=== PATIENT | female | born 1995 | race Caucasian/White ===

== ENCOUNTER 2018-05-10 11:56 | Inpatient (IN) ==
[2018-05-10] MEDS ORDERED: Ondansetron 4 MG/2 ML VIAL IVP PRN (12:42)
[2018-05-10] MEDS ORDERED: Famotidine 20 MG/2 ML VIAL IVP PRN (12:42)
[2018-05-10] MEDS ORDERED: Naloxone 0.4 MG/ML INJ IVP PRN (12:42)
[2018-05-10] MEDS ORDERED: Metoclopramide 10 MG/2 ML VIAL IVP PRN (12:42)
[2018-05-10] MEDS ORDERED: *HR* Nalbuphine 10 MG/ML AMPUL IVP PRN (12:42)
[2018-05-10] MEDS ORDERED: Ringers Solution, Lactated 1,000 ML IVC SCH (12:45)
[2018-05-10 13:14] LABS: Basophils # 0.1 K/mcL (0.0-0.2); Basophils % 0.3 %; Eosinophils # 0.1 K/mcL (0.0-0.6); Eosinophils % 0.4 %; Hematocrit 35.5 % (35.3-44.9); Hemoglobin 11.7 g/dL (11.5-15.4); Immature Granulocytes % 0.5 % (0-4); Lymphocytes # 2.9 K/mcL (0.6-4.6); Lymphocytes % 19.8 %; Mean Corpuscular Hemoglobin 27.7 pg (28.0-33.3); Mean Corpuscular Volume 84.1 fL (83.0-100.0); Mean Platelet Volume 12.8 fL (9.4-12.4); Monocytes # 0.8 K/mcL (0.0-1.3); Monocytes % 5.5 %; Neutrophils # 10.8 K/mcL (1.6-8.9); Platelet Count 201 K/mcL (140-400); Red Blood Count 4.22 M/mcL (3.82-4.97); Red Cell Distribution Width 13.8 % (11.5-14.5); Segmented Neutrophils % 73.5 %
[2018-05-10 13:26] LABS: Amphetamine Screen,Urine Negative ng/mL (Cutoff=1000); Barbiturate Screen,Urine Negative ng/mL (Cutoff=200); Benzodiazepines Screen,Urine Negative ng/mL (Cutoff=200); Cannabinoid Screen,Urine Negative ng/mL (Cutoff = 50); Cocaine Screen,Urine Negative ng/mL (Cutoff= 300); Opiate Screen,Urine Negative ng/mL (Cutoff=300); Phencyclidine Screen,Urine Negative ng/mL (Cutoff=25)
--- NOTE | 2018-05-10 14:26 | OB/GYN History & Physical ---
Date of Encounter: 05/10/18 Time of Encounter: 14:22 Assessment and Plan (1) 40 weeks gestation of Current visit: Yes Status: Acute Admit to labor and delivery Continuous monitoring Patient has Nubain or Epidural available upon request GBS negative Anticipate Vaginal Delivery (2) Intrauterine Current visit: Yes Status: Acute History of Present Illness Chief complaint: Labor Evaluation HPI: Ms. Machuca is a 23 year old female 40 +1 who presents to the Labor and delivery floor with contractions that started at 10am today. Reports that she has had no complications during this . Reports some vaginal spotting after checks. Denies any leakage of clear fluid. Reports recent movement. Patient has seen Dr. Sanchez on an outpatient basis. Blood Type: 0+ GBS: negative Hep B surface antigen: negative HIV AB: negative Treponema: negative Gonnorhea: negative Chlamydia: negative (has history of chlamydia) Varicella: Immune Rubella: immune Past Med Surg Social Fam HX - Past Medical History Medical history: non-contributory Psychiatric history: no psych history - Social History Smoking Status: Unknown if ever smoked Smokeless Tobacco Status: No Alcohol use: unknown Drug use: none - Family History Mother Adopted: No Age: 41 Family Member Ethnicity: Non- Living Status: Still Living Hx Family Cardiac Disorders: No Hx Family Respiratory Disorders: No Hx Family Cancer: No Hx Family GI Disorders: No Hx Family Genitourinary Disorders: No Hx Family Endocrine Disorder: No Hx Family Musculoskeletal Disorders: No Hx Family Neuromuscular Disorders: No Hx Family Neurologic Disorders: No Hx Family HEENT Disorders: No Hx Family Autoimmune Disorders: No Hx Family Reproductive Disorders: No Hx Family Psychosocial Disorders: No Hx Family Medical Disorders: No Obstetrical History - Pregnancies : 3 Para: 2 Term: 1 : 0 Ab's: 1 Livin - History/Complications History/Complications: one miscarriage Medications and Allergies Omeprazole [PriLOSEC] 20 mg PO DAILY 05/10/18 [History] Vit Calc,Iron,Folic [ Vitamins] 1 tab PO DAILY 05/10/18 [ History] 3 Allergy/AdvReac Type Severity Reaction Status Date / Time No Known Allergies Allergy Verified 02/23/16 23:37 Review of System OB All systems PM: reviewed and no additional remarkable complaints except as stated - Constitutional Constitutional ROS IM: no fever(s), no headache(s) - Cardiovascular Cardiovascular: no dyspnea - Respiratory Respiratory: no dyspnea - Gastrointestinal Gastrointestinal: no abdominal pain - Genitourinary Genitourinary: other (spotting) - Integumentary Integumentary: no rash Exam - Constitutional Constitutional: well developed, well nourished, no acute distress - HEENT HEENT: Mucus Membranes Moist - Neck Neck exam: normal inspection - Lungs Respiratory exam: CTAB - Cardiovascular Cardiovascular exam: RRR, +S1, +S2 - Abdomen Abdomen: Present: gravid, non tender - Extremities Extremities exam: full ROM Results Result Diagrams: 05/10/18 12:55 Abnormal lab results WBC 14.7 K/mcL (4.3-11.1) H 05/10/18 12:55 MCH 27.7 pg (28.0-33.3) L 05/10/18 12:55 MPV 12.8 fL (9.4-12.4) H 05/10/18 12:55 Neutrophils # 10.8 K/mcL (1.6-8.9) H 05/10/18 12:55 All other labs normal. - VTE Reasons for not Prescribing Prophylaxis: Treatment not Indicated - Low risk for VTE
[2018-05-10] MEDS ORDERED: Oxytocin 20 units/ LR 1000 mL 20 UNIT/1,000 ML BAG IVC SCH ×2 (15:00→22:26)
[2018-05-10] MEDS ORDERED: *HR* Ropivacaine/PF 0.2% 20 ML VIAL EP ONE (15:48)
[2018-05-10] MEDS ORDERED: *HR* FentaNYL (PF) 100 MCG/2 ML VIAL EP ONE (15:48)
--- NOTE | 2018-05-10 15:48 | Anesthesia Evaluation PreOp ---
Date of Encounter: 05/10/18 Time of Encounter: 15:46 - Past History Planned Operation: lili Cardiac History: Denies any Significant Hx Pulmonary History: Denies Any Significant HX SOCIAL SCIENTIST History: Denies Any Significant HX Other Medical History: GERD Anesthesia History: No Prior Anesthetic Complications, Past Anesthesia (t&a lili) : Yes Test: Positive Alcohol Use: unknown Drug use: none Medications and Allergies Omeprazole [PriLOSEC] 20 mg PO DAILY 05/10/18 [History] Vit Calc,Iron,Folic [ Vitamins] 1 tab PO DAILY 05/10/18 [ History] 3 Allergy/AdvReac Type Severity Reaction Status Date / Time No Known Allergies Allergy Verified 02/23/16 23:37 - Meds/Allergy Pre-op Review Medications Reviewed: Yes Allergies Reviewed: Yes Beta Blockers on Current Med List: No Anesthesia Results - Labs 05/10/18 12:55 Anesthesia Exam see nsg note Height: 5'5" Weight: 193 NPO (# of Hours): 2 Pain Scale: 3 Pain Scale Used: Numeric (1 - 10) - HEENT Pupil (Motor): Pupils equal Mallampati: II Teeth: Normal Oral Opening: Greater than 3 - SOCIAL SCIENTIST LOC: Oriented SOCIAL SCIENTIST Motor: Normal RUE, Normal LUE, Normal RLE, Normal LLE, Normal Face SOCIAL SCIENTIST Sensory: Normal: RUE, LUE, RLE, LLE, Face - Cardiac Rhythm: Regular Murmur: None - Pulmonary Breath Sounds: bilateral Clear Respiratory Effort: Symmetrical Anesthesia Assess/Plan ASA Score: 2 Modified Ashly Scale for Level of Consciousness: Cooperative, oriented, and tranquil Anesthetic Plan: Regional Autologous Blood: No Monitoring Plan: Standard Monitors Recovery Plan: Other (risks discussed questions answered, consented)
[2018-05-10] MEDS ORDERED: Epidural Premix (fent/bupiv) 110 ML EP SCH (16:00)
[2018-05-10] MEDS ORDERED: Lidocaine -MPF 2% 5 ML VIAL ONE (17:47)
[2018-05-10] MEDS ORDERED: *HR* Ropivacaine/PF 0.2% 20 ML VIAL ONE (17:47)
[2018-05-10] MEDS ORDERED: *HR* FentaNYL (PF) 100 MCG/2 ML VIAL ONE (17:48)
--- NOTE | 2018-05-10 18:05 | OB Labor Progress Note ---
Date of Encounter: 05/10/18 Time of Encounter: 18:03 Labor Progress Note - Subjective Subjective: 23 yo female presents to L&D with contractions. SVE on presentation 6/80/ -2. Regular contractions - Cervix Cervix: 6/80/-2 - Heart Tones Heart Tones: 150s category 1 - Interventions Interventions: AROM performed with light Meconium stained fluid noted. - Plan Plan: Pitocin started to increase contractions. Expectant management
--- NOTE | 2018-05-10 18:50 | Anesthesia Procedures ---
Date of Encounter: 05/10/18 Time of Encounter: 18:15 Procedures: Anesthesia - Epidural/Spinal Patient ID/Chart reviewed: Yes Patient examined: Yes OB Eval: Gestational age: 40 OB Eval: : 3 OB Eval: Hx Para: 1 OB Eval: Dilated at (cm): 7 OB Eval: Contractions: Non-stressed pattern Consent Obtained: Yes Supplemental Oxygen: None/Room Air Site Prep: Aseptic Technique, 0.5% Chlorhexidine/Alcohol Patient position: upright Local Anesthetic: Lidocaine 1% (3) Amount of Local Anesthetic used: 3 Touhy Needle Gauge: 18 Touhy Needle Depth (cm): 8 Catheter Depth at Skin (cm): 18 Test Dose (1.5% Lido + Epi): Volume given (mls): 3 Test Dose Result: Negative Loading Dose: Fentanyl (mcg): 100 Loading Dose: Other: rop 0.2% 10cc Loading Dose Administered: Thru Touhy Needle Infusion Med: 0.125% Bupivacaine w/ 2 mcg/ml Fentanyl Infusion Rate (mls/hr): 15 (pcea 5 cc q30") Catheter Secured in Place: Tegaderm Interspace Used: L2-L3 Loss of Resistance (CHRISTOPHER): Yes Blood: No CSF: No Paresthesia: No Procedure: asepticc codi well, VSS, effective Vitals + FHT's: 112/78 87 16 fht 143
--- NOTE | 2018-05-10 20:06 | OB/GYN Procedure Note ---
Delivery - Delivery Date: 05/10/18 Provider: Socrates Sanchez Intrapartum events: none Delivery induction: none Delivery augmentation: rupture of membranes, pitocin Delivery monitor: external FHT, external uterine Anesthesia: epidural Quantitated Blood Loss: 100 - Infant (s) A Delivery Date: 05/10/18 Delivery Time: 19:50 Presentation: vertex Position: CHARU Route of delivery: Gender: Female Viability: Viable Pounds: 7 Ounces: 1 Weight Gram: 3.22 kg at 1 minute: 8 at 5 mins: 9 Shoulder Dystocia: not encountered Specimens collected: cord blood Placenta: spontaneous - Complications Delivery complications: none - Disposition Mom disposition: stable in LDR disposition: stable in LDR - Comments Comments: Patient presented to labor and delivery in labor. She progressed to complete and pushing after artificial rupture membranes was performed. Patient was then prepped and draped in usual sterile fashion. Patient progressed quickly pushing spontaneous vaginal delivery of a female infant over an intact perineum. 's head was in the perineum easily. The rest of the infant was then delivered with 1 push. cried immediately upon delivery cord was clamped and cut. The infant was then passed to nursing in attendance after 60 seconds of cord clamping. Cord blood was obtained. The placenta was delivered spontaneously intact. There is no cervical vaginal perirectal or perineal lacerations noted. Patient delivered a female weight was 7 lbs. 1 oz. Apgars are 8 at 1 minute 9 at 5 minutes assessment blood loss is 100 mL
[2018-05-10] MEDS ORDERED: Acetaminophen 325 MG TABLET PO PRN (22:26)
[2018-05-10] MEDS ORDERED: Measles/Mumps/Rubella Vacc 0.5 ML VIAL SQ PRN (22:26)
[2018-05-10] MEDS ORDERED: Ibuprofen 600 MG TABLET PO PRN (22:26)
[2018-05-11 06:04] LABS: Basophils % 0.3 %; Eosinophils % 0.2 %; Hematocrit 30.7 % (35.3-44.9); Hemoglobin 10.2 g/dL (11.5-15.4); Immature Granulocytes % 0.4 % (0-4); Lymphocytes # 3.1 K/mcL (0.6-4.6); Lymphocytes % 23.3 %; Mean Corpuscular HGB Conc 33.2 g/dL (31.6-35.5); Mean Corpuscular Hemoglobin 27.7 pg (28.0-33.3); Mean Corpuscular Volume 83.4 fL (83.0-100.0); Mean Platelet Volume 12.5 fL (9.4-12.4); Monocytes # 0.9 K/mcL (0.0-1.3); Neutrophils # 9.3 K/mcL (1.6-8.9); Platelet Count 178 K/mcL (140-400); Red Blood Count 3.68 M/mcL (3.82-4.97); Segmented Neutrophils % 68.8 %
--- NOTE | 2018-05-11 07:05 | OB/GYN Progress Note ---
Date of Encounter: 05/11/18 Time of Encounter: 07:02 - Assessment and Plan (1) (spontaneous vaginal delivery) Current Visit: Yes Status: Acute (2) 40 weeks gestation of Current Visit: Yes Status: Acute Subjective - Subjective Principal diagnosis: s/p uncomplicated Interval history: 23-year-old female presented to labor and delivery in labor. On presentation she was 6-7 cm with bulging bag. Augmentation of labor was performed with Pitocin and artificial rupture membranes performed. Patient progressed quickly to complete and pushing at a spontaneous vaginal delivery of a female infant over an intact perineum. did well without complaints. Baby is doing wonderfully. Patient would like to go home after 24 hours. Patient reports: appetite normal, voiding normally, pain well controlled : doing well Objective - Latest Vital Signs Latest vital signs: Vital Signs Temp Pulse Resp BP Pulse Ox 05/11/18 00:15 98.2 F 98 16 132/76 98 05/10/18 23:15 98.4 F 98 16 123/66 98 05/10/18 22:10 98.4 F 68 14 122/84 97 Intake and Output 05/10/18 05/10/18 05/11/18 15:59 23:59 07:59 Intake Total 800 / 800 800 / 800 Output Total 400 / 400 800 / 800 Balance 400 / 400 0 / 0 Intake: IV Fluids 800 / 800 Pitocin 20 unit In 1,000 ml @ 800 / 800 Per Protocol IVC .Q0M [facility] Rx#: [id number] Oral 800 / 800 Output: Urine 800 / 800 Estimated Blood Loss 100 / 100 Catheter 300 / 300 Other: Weight 87.543 kg 86.2 kg - Exam Lungs: bilateral: normal Chest: Normal S1, Normal S2 Extremities: Present: normal Abdomen: Present: normal appearance, soft Uterus: Present: normal, firm Uterus Position: 3 Fingers Below Umbilicus - Labs Labs: Laboratory Results - last 24 hr 05/10/18 05/10/18 05/11/18 12:55 12:55 05:50 WBC 14.7 H 13.5 H RBC 4.22 3.68 L Hgb 11.7 10.2 L D Hct 35.5 30.7 L MCV 84.1 83.4 MCH 27.7 L 27.7 L MCHC 33.0 33.2 RDW 13.8 14.0 Plt Count 201 178 MPV 12.8 H 12.5 H Immature Gran % 0.5 0.4 Seg Neutrophils % 73.5 68.8 Lymphocytes % 19.8 23.3 Monocytes % 5.5 7.0 Eosinophils % 0.4 0.2 Basophils % 0.3 0.3 Neutrophils # 10.8 H 9.3 H Lymphocytes # 2.9 3.1 Monocytes # 0.8 0.9 Eosinophils # 0.1 0.0 Basophils # 0.1 0.0 Urine Opiates Screen Negative Ur Barbiturates Screen Negative Ur Phencyclidine Scrn Negative Ur Amphetamines Screen Negative U Benzodiazepines Scrn Negative Urine Cocaine Screen Negative U Marijuana (THC) Screen Negative Ur Drug Screen Interp See Below
--- NOTE | 2018-05-11 07:07 | Discharge Summary ---
Date of Encounter: 05/11/18 Time of Encounter: 07:07 - Discharge Diagnosis (1) (spontaneous vaginal delivery) Priority: Primary Status: Acute (2) 40 weeks gestation of Priority: Secondary Status: Acute (3) Term of female Priority: Secondary Status: Acute - Discharge Medications Home Medications: Omeprazole [PriLOSEC] 20 mg PO DAILY 05/10/18 [History] Vit Calc,Iron,Folic [ Vitamins] 1 tab PO DAILY 05/10/18 [ History] Allergies/Adverse Reactions: 3 Allergy/AdvReac Type Severity Reaction Status Date / Time No Known Allergies Allergy Verified 02/23/16 23:37 Data Procedures and tests throughout hospitalization: Laboratory Tests 05/10/18 05/10/18 05/11/18 12:55 12:55 05:50 WBC 14.7 H 13.5 H RBC 4.22 3.68 L Hgb 11.7 10.2 L D Hct 35.5 30.7 L MCV 84.1 83.4 MCH 27.7 L 27.7 L MCHC 33.0 33.2 RDW 13.8 14.0 Plt Count 201 178 MPV 12.8 H 12.5 H Immature Gran % 0.5 0.4 Seg Neutrophils % 73.5 68.8 Lymphocytes % 19.8 23.3 Monocytes % 5.5 7.0 Eosinophils % 0.4 0.2 Basophils % 0.3 0.3 Neutrophils # 10.8 H 9.3 H Lymphocytes # 2.9 3.1 Monocytes # 0.8 0.9 Eosinophils # 0.1 0.0 Basophils # 0.1 0.0 Urine Opiates Screen Negative Ur Barbiturates Screen Negative Ur Phencyclidine Scrn Negative Ur Amphetamines Screen Negative U Benzodiazepines Scrn Negative Urine Cocaine Screen Negative U Marijuana (THC) Screen Negative Ur Drug Screen Interp See Below Labs on day of discharge: Labs from last 24 hours 05/11/18 05/10/18 05/10/18 05:50 12:55 12:55 WBC 13.5 H 14.7 H RBC 3.68 L 4.22 Hgb 10.2 L D 11.7 Hct 30.7 L 35.5 MCV 83.4 84.1 MCH 27.7 L 27.7 L MCHC 33.2 33.0 RDW 14.0 13.8 Plt Count 178 201 MPV 12.5 H 12.8 H Immature Gran % 0.4 0.5 Seg Neutrophils % 68.8 73.5 Lymphocytes % 23.3 19.8 Monocytes % 7.0 5.5 Eosinophils % 0.2 0.4 Basophils % 0.3 0.3 Neutrophils # 9.3 H 10.8 H Lymphocytes # 3.1 2.9 Monocytes # 0.9 0.8 Eosinophils # 0.0 0.1 Basophils # 0.0 0.1 Urine Opiates Screen Negative Ur Barbiturates Screen Negative Ur Phencyclidine Scrn Negative Ur Amphetamines Screen Negative U Benzodiazepines Scrn Negative Urine Cocaine Screen Negative U Marijuana (THC) Screen Negative Ur Drug Screen Interp See Below Date of admission: 05/10/18 11:56 Primary care physician: Alicia Carty CNP Consults: 05/10/18 22:26 Consult to Carry Out Clerk [CONS] Routine Comment: Vaginal delivery, consult needed Discharging clinician: Socrates Sanchez Anticipated date of discharge: 05/11/18 - Patient Status Disposition: Home, Self-Care Condition: Good Functional capacity at discharge: independent ambulation Overall status at discharge: patient is back to baseline - Discharge Instructions Follow Up With: Alicia Carty CNP [Primary Care Provider] - - Diet and Activity Activity: increase activity as tolerated Diet: advance to your usual diet (Uncomplicated , normal course. Patient feeling well. Wishing to go home.) Hospital Course [employer] Time Attestation: Total time spent providing and/or coordinating discharge services: Exam - Constitutional Vitals: Temp Pulse Resp BP Pulse Ox 98.2 F 98 16 132/76 98 05/11/18 00:15 05/11/18 00:15 05/11/18 00:15 05/11/18 00:15 05/11/18 00:15 General appearance IM: A&O X 3 - Respiratory Respiratory exam: Present: CTAB - Cardiovascular Cardiovascular exam IM: Present: RRR - GI/Abdominal GI/Abdominal exam IM: normal bowel sounds - Uterus Position: 3 Fingers Below Umbilicus - Extremities Exam Extremities exam IM: Present: full ROM, normal inspection - Neurological Exam Neurological exam: reflexes normal - VTE Reasons for not Prescribing Prophylaxis: Treatment not Indicated - Low risk for VTE
[2018-05-11 07:51] VITALS: BP 104/62
[2018-05-11] MEDS ORDERED: Prenatal Vit/FA 1 EACH TABLET PO SCH (09:00)
== END 2018-05-11 15:55 | disposition home or self-care (01) | DRG 560 ==
LOC: 1NENULAB → OBSVTOIN 11:56 → 1NENUOBS 22:39
PROVIDERS: ADMIT Obstetrics & Gynecology; ATTEND Obstetrics & Gynecology

== ENCOUNTER 2020-10-25 14:24 | Inpatient (IN) ==
[2020-10-25] MEDS ORDERED: miSOPROStoL 25 MCG TABLET PO PRN (14:25)
[2020-10-25] MEDS ORDERED: Lidocaine 1% 20 ML MDV INFILT PRN (14:25)
[2020-10-25] MEDS ORDERED: Metoclopramide 10 MG/2 ML VIAL IVP PRN (14:25)
[2020-10-25] MEDS ORDERED: Ondansetron 4 MG/2 ML VIAL IVP PRN (14:25)
[2020-10-25] MEDS ORDERED: Famotidine 20 MG/2 ML VIAL IVP PRN (14:25)
[2020-10-25] MEDS ORDERED: Naloxone 0.4 MG/ML INJ IVP PRN (14:25)
[2020-10-25] MEDS ORDERED: *HR* Nalbuphine 10 MG/ML AMPUL IV PRN (14:25)
[2020-10-25] MEDS ORDERED: Ringers Solution, Lactated 1,000 ML IVC SCH (14:30)
[2020-10-25] MEDS ORDERED: EPHEDrine 50 MG/ML VIAL IVP PRN (15:05)
[2020-10-25] MEDS ORDERED: Epidural Premix (fent/bupiv) 110 ML EP SCH (15:15)
[2020-10-25 15:57] LABS: Basophils % 0.3 %; Eosinophils % 0.1 %; Hemoglobin 11.5 g/dL (11.5-15.4); Immature Granulocytes % 0.4 % (0-4); Lymphocytes # 1.4 K/mcL (0.6-4.6); Lymphocytes % 15.1 %; Mean Corpuscular HGB Conc 32.9 g/dL (31.6-35.5); Mean Corpuscular Hemoglobin 28.5 pg (28.0-33.3); Mean Corpuscular Volume 86.8 fL (83.0-100.0); Mean Platelet Volume 12.4 fL (9.4-12.4); Monocytes # 0.5 K/mcL (0.0-1.3); Monocytes % 5.3 %; Neutrophils # 7.2 K/mcL (1.6-8.9); Platelet Count 171 K/mcL (140-400); Red Blood Count 4.03 M/mcL (3.82-4.97); Red Cell Distribution Width 14.6 % (11.5-14.5); Segmented Neutrophils % 78.8 %; White Blood Count 9.2 K/mcL (4.3-11.1)
[2020-10-25] MEDS ORDERED: Oxytocin 20 units/ LR 1000 mL 20 UNIT/1,000 ML BAG IVC SCH ×2 (16:00→22:20)
[2020-10-25 16:22] LABS: Amphetamine Screen,Urine Negative ng/mL (Cutoff=1000); Barbiturate Screen,Urine Negative ng/mL (Cutoff=200); Benzodiazepines Screen,Urine Negative ng/mL (Cutoff=200); Cannabinoid Screen,Urine Positive ng/mL (Cutoff = 50); Cocaine Screen,Urine Negative ng/mL (Cutoff= 300); Opiate Screen,Urine Negative ng/mL (Cutoff=300); Phencyclidine Screen,Urine Negative ng/mL (Cutoff=25)
[2020-10-25 16:29] LABS: Influenza A PCR Negative (Negative); Influenza B PCR Negative (Negative); Resp. Syncytial Virus PCR Negative (Negative)
[2020-10-25 16:49] LABS: SARS-CoV-2 by PCR (In House) Negative (Negative)
[2020-10-25] MEDS ORDERED: Measles/Mumps/Rubella Vacc 0.5 ML VIAL SQ PRN (22:20)
[2020-10-25] MEDS ORDERED: Lanolin 7 G OINT...G. TP PRN (22:20)
[2020-10-25] MEDS ORDERED: Oxytocin 20 units/ LR 1000 mL 20 UNIT/1,000 ML BAG IVC ONE (22:20)
[2020-10-25] MEDS ORDERED: Ibuprofen 600 MG TABLET PO PRN (22:20)
[2020-10-25] MEDS ORDERED: Benzocaine/Menthol 56 GM AEROSOL SPRAY TP PRN (22:20)
[2020-10-25] MEDS ORDERED: Acetaminophen 325 MG TABLET PO PRN (22:20)
[2020-10-26] MEDS ORDERED: Prenatal Vit/FA 1 EACH TABLET PO SCH (09:00)
[2020-10-26 15:42] VITALS: BP 113/59
== END 2020-10-26 22:35 | disposition home or self-care (01) | DRG 807 ==
LOC: 1NENULAB → 1NENUOBS 23:29
PROVIDERS: ADMIT Obstetrics & Gynecology; ATTEND Obstetrics & Gynecology